=== PATIENT | female | born 1995 | race Caucasian/White ===

== ENCOUNTER 2022-01-07 08:00 | Outpatient (CLI) | payer MEDICAID ==
[2022-01-07 15:13] LABS: BILIRUBIN,URINE NEGATIVE (NEGATIVE); GLUCOSE, URINE (UA) NEGATIVE (NEGATIVE); KETONES,URINE (UA) NEGATIVE (NEGATIVE); LEUKOCYTE ESTERASE, URINE TRACE (NEGATIVE); NITRITE,URINE POSITIVE (NEGATIVE); OCCULT BLOOD,URINE NEGATIVE (NEGATIVE); PROTEIN,URINE NEGATIVE (NEGATIVE); UROBILINOGEN,URINE 0.2 (NORMAL) E.U./dL (NORMAL)
[2022-01-07 15:19] LABS: CLARITY,URINE HAZY (CLEAR)
[2022-01-07 15:24] LABS: BACTERIA,URINE Many /HPF (None Seen); RBC,URINE 0-5 /HPF (0-5); SQUAMOUS EPITHELIAL CELL,UR FEW Squamous (<= Few); WBC,URINE >25 /HPF (0-5)
== END 2022-01-07 23:59 | disposition home or self-care (01) ==
LOC: LAB.S 08:00
PROVIDERS: ATTEND Emergency Medicine
DX: N39.0 Urinary tract infection, site not specified (principal)
CPT/HCPCS: 81001; 87077; 87086; 87181

== ENCOUNTER 2022-07-26 18:03 | Emergency (ER) | payer MEDICAID ==
[2022-07-26 18:38] VITALS: BP 143/80
--- OUTSIDE RECORDS SUMMARY | 2022-07-26 18:46 | EXTERNAL MEDICAL SUMMARY RPT | Continuity of Care Document ---
:1995 Author Organization [facility] Address [address] [place] [address] Phone Allergies No information. Encounters No information. Functional Status No information. Immunizations No information. Medications No information. Problems No information. Procedures No information. Results/Labs test date author facility value unit interpret ation Result panel 1 (unknown) (no (unknown) (unknown) (no value) (units (unk nown) date) unknown) (unknown) (no (unknown) (unknown) 05/27/22 (units (unkno wn) date) unknown) (unknown) (no (unknown) (unknown) [address] [place] [address] (units (unknown) date) unknown) (unknown) (no (unknown) (unknown) 2021. (units (unkno wn) date) unknown) (unknown) (no (unknown) (unknown) 7 mm in 3rd (units (un known) date) trimester. unknown) (unknown) (no (unknown) (unknown) Abdominal (units (unkn own) date) circumference: unknown) 25.18 cm, 29 weeks and 3 days (unknown) (no (unknown) (unknown) Accession (units (unkn own) date) Number: unknown) [id number] (unknown) (no (unknown) (unknown) Age/Sex: 27 / F (units (unknown) date) Date of Service: unknown) (unknown) (no (unknown) (unknown) Amniotic fluid (units (unknown) date) index: 14.5 cm, unknown) normal range is 5-24 cm. (unknown) (no (unknown) (unknown) FLORINA Edwards (units ( unknown) date) [id number] unknown) (unknown) (no (unknown) (unknown) Anatomic survey: (units (unknown) date) unknown) (unknown) (no (unknown) (unknown) Approved by: (units (u nknown) date) Ry Mancia M.D. on unknown) 05/27/2022 at 14:33 (unknown) (no (unknown) (unknown) Biparietal (units (unk nown) date) diameter: 7.36 unknown) cm, 29 weeks and 4 days (unknown) (no (unknown) (unknown) Bladder: Normal (units (unknown) date) in size. unknown) (unknown) (no (unknown) (unknown) COMPARISON: (units (un known) date) None. unknown) (unknown) (no (unknown) (unknown) Clinically (units (unk nown) date) estimated unknown) gestational age: 28 weeks and 2 days (unknown) (no (unknown) (unknown) Composite (units (unkn own) date) gestational age unknown) from present scan: 29 weeks and 4 days (unknown) (no (unknown) (unknown) Cord: 3-vessel (units (unknown) date) cord has unknown) orthotopic insertion. (unknown) (no (unknown) (unknown) : 1995 (units (unknown) date) Acct:[id number] unknown) (unknown) (no (unknown) (unknown) Diaphragm: (units (unk nown) date) Diaphragm is unknown) intact. (unknown) (no (unknown) (unknown) Dictated by: (units (u nknown) date) Ry Mancia M.D. on unknown) 05/27/2022 at 14:25 (unknown) (no (unknown) (unknown) Endovaginal (units (un known) date) scanning: Not unknown) performed (unknown) (no (unknown) (unknown) Estimated date (units (unknown) date) of delivery (ANALIA) unknown) from first dating scan: August 08, 2022. (unknown) (no (unknown) (unknown) Estimated (units (unknown) date) weight and unknown) percentile: 1363 g which correlates with the 75th (unknown) (no (unknown) (unknown) Estimated (units (unknown) date) weight of unknown) approximately 1363 g which correlates with the 75th (unknown) (no (unknown) (unknown) Extremities: All (units (unknown) date) 4 extremities unknown) identified, but the lateral left leg was not (unknown) (no (unknown) (unknown) FINDINGS: (units (unkn own) date) unknown) (unknown) (no (unknown) (unknown) Face: Nose and (units (unknown) date) lips, facial unknown) profile are not well visualized. (unknown) (no (unknown) (unknown) Femur length: (units ( unknown) date) 5.43 cm, 28 weeks unknown) and 5 days (unknown) (no (unknown) (unknown) (units (unkno wn) date) biometrics: unknown) (unknown) (no (unknown) (unknown) heart (units (un known) date) rate: 139 beats unknown) per minute. (unknown) (no (unknown) (unknown) First dating (units (u nknown) date) scan (date and unknown) location): May 27, 2022. (unknown) (no (unknown) (unknown) Follow-up (units (unkn own) date) imaging unknown) recommended. (unknown) (no (unknown) (unknown) General: A (units (unk nown) date) single living unknown) intrauterine gestation is present. (unknown) (no (unknown) (unknown) Head (units (unkno wn) date) circumference: unknown) 27.70 cm, 30 weeks and 2 days (unknown) (no (unknown) (unknown) Heart: (units (unkno wn) date) 4-chambered heart unknown) is present, with normal ventricular outflow tracts. (unknown) (no (unknown) (unknown) IMPRESSION: (units (un known) date) Single living unknown) intrauterine gestation with estimated gestational (unknown) (no (unknown) (unknown) INDICATIONS: (units (u nknown) date) ANATOMY SCAN unknown) (unknown) (no (unknown) (unknown) [facility] (units (unknown) date) unknown) (unknown) (no (unknown) (unknown) Kidneys: No (units (un known) date) unknown) hydronephrosis. Normal is less than 5 mm in 2nd trimester, (unknown) (no (unknown) (unknown) LMP-based (units (unkn own) date) estimated date of unknown) delivery (ANALIA): August 17, 2022. (unknown) (no (unknown) (unknown) Last menstrual (units (unknown) date) period (LMP): unknown) November 10, 2021. (unknown) (no (unknown) (unknown) Limited (units (unkno wn) date) visualization of unknown) the facial profile, nose/lips, lumbosacral (unknown) (no (unknown) (unknown) Loc: [place] (units (unkno wn) date) unknown) (unknown) (no (unknown) (unknown) [id number] (units (unk nown) date) unknown) (unknown) (no (unknown) (unknown) Maternal (units (unkno wn) date) cervical canal: unknown) 4.5 cm long. Normal lower limit is 2.5 cm. (unknown) (no (unknown) (unknown) Neuro: (units (unkno wn) date) Ventricles are unknown) non-dilated at less than 10 mm. Cisterna magna is (unknown) (no (unknown) (unknown) Nuchal skin (units (un known) date) fold: Not unknown) assessed given gestational age greater than 14-21 weeks (unknown) (no (unknown) (unknown) OUTSIDE/PRIOR (units ( unknown) date) DATING DATA: unknown) (unknown) (no (unknown) (unknown) Ordering (units (o wn) date) Provider: unknown) Moses Andrea C.N.M. (unknown) (no (unknown) (unknown) PROCEDURE: US OB (units (unknown) date) >= 14 WEEKS FETUS unknown) (unknown) (no (unknown) (unknown) Patient: (units (unkno wn) date) Jeannie Pantoja unknown) E MR#: (unknown) (no (unknown) (unknown) Placenta: (units (unkn own) date) Placental unknown) position is anterior , without previa. (unknown) (no (unknown) (unknown) Presentation: (units ( unknown) date) Transverse. unknown) (unknown) (no (unknown) (unknown) Procedure: US OB (units (unknown) date) >= 14 weeks Fetus unknown) (unknown) (no (unknown) (unknown) Real-time (units (unkn own) date) scanning was unknown) performed of the fetus, with image documentation and (unknown) (no (unknown) (unknown) Signed (units (unkno wn) date) unknown) (unknown) (no (unknown) (unknown) Single deepest (units (unknown) date) vertical pocket unknown) is 5.3 cm. (unknown) (no (unknown) (unknown) Spine: Limited (units (unknown) date) evaluation of the unknown) lumbosacral spine. (unknown) (no (unknown) (unknown) Stomach: (units (unkno wn) date) Left-sided unknown) stomach is present. (unknown) (no (unknown) (unknown) TECHNIQUE: (units (unk nown) date) unknown) (unknown) (no (unknown) (unknown) The calculations (units (unknown) date) are made using unknown) the clinically derived ANALIA of August 17, (unknown) (no (unknown) (unknown) To assist (units (unkn own) date) unknown) (unknown) (no (unknown) (unknown) Ultrasound (units (unk nown) date) Report unknown) (unknown) (no (unknown) (unknown) We strive to (units (u nknown) date) produce accurate, unknown) complete, and clear reports of imaging services. (unknown) (no (unknown) (unknown) age of (units (unkno wn) date) unknown) (unknown) (no (unknown) (unknown) and voice (units (unkn own) date) recognition unknown) software. Therefore, it may contain abnormal punctuation, (unknown) (no (unknown) (unknown) approximately 28 (units (unknown) date) weeks and 2 days unknown) versus estimated sonographic gestational age (unknown) (no (unknown) (unknown) approximately 29 (units (unknown) date) weeks and 4 days unknown) by today's ultrasound. Dating remains (unknown) (no (unknown) (unknown) biometric (units (unkn own) date) unknown) (unknown) (no (unknown) (unknown) concordant. (units (un known) date) unknown) (unknown) (no (unknown) (unknown) for gestational (units (unknown) date) age unknown) (unknown) (no (unknown) (unknown) gestational age. (units (unknown) date) unknown) (unknown) (no (unknown) (unknown) inaccuracies. (units ( unknown) date) unknown) (unknown) (no (unknown) (unknown) insertions (units (unk nown) date) and/or omissions. unknown) Occasional wrong-word or sound-alike substitutions (unknown) (no (unknown) (unknown) lateral left (units (u nknown) date) lower extremity. unknown) Otherwise, unremarkable anatomic screening (unknown) (no (unknown) (unknown) less than (units (unkn own) date) unknown) (unknown) (no (unknown) (unknown) may (units (unkno wn) date) unknown) (unknown) (no (unknown) (unknown) measurements. (units ( unknown) date) unknown) (unknown) (no (unknown) (unknown) mm. Cerebellum (units (unknown) date) is normal in size unknown) and morphology. (unknown) (no (unknown) (unknown) normal at 3-11 (units (unknown) date) unknown) (unknown) (no (unknown) (unknown) occur. Though we (units (unknown) date) review the report unknown) and make efforts to correct it, we do (unknown) (no (unknown) (unknown) of (units (unkno wn) date) unknown) (unknown) (no (unknown) (unknown) percentile (units (unk nown) date) unknown) (unknown) (no (unknown) (unknown) percentile. (units (un known) date) unknown) (unknown) (no (unknown) (unknown) recommend that (units (unknown) date) unknown) (unknown) (no (unknown) (unknown) spine, and (units (unk nown) date) unknown) (unknown) (no (unknown) (unknown) survey. (units (unkno wn) date) unknown) (unknown) (no (unknown) (unknown) templates (units (unkn own) date) unknown) (unknown) (no (unknown) (unknown) the report be (units ( unknown) date) read carefully in unknown) proper context to recognize any text (unknown) (no (unknown) (unknown) us in improving (units (unknown) date) patient care, unknown) this report was composed using standard report (unknown) (no (unknown) (unknown) visualized. (units (un known) date) unknown) (unknown) (no (unknown) (unknown) well (units (unkno wn) date) unknown) Social History No information. Vital Signs No information.
--- NOTE | 2022-07-26 21:41 | ED Physician Documentation ---
History of Present Illness - Stated complaint Stated Complaint: FEMALE - Chief complaint Chief Complaint: General - Additonal information Additional information: 27-year-old female who is reportedly 38 weeks presents to the emergency department for a large thrombosed hemorrhoid which has made defecation painful for the last 4 days. She has previously had hemorrhoid surgery with our previous Dr. Mathis. She has been applying lidocaine without relief. She went to a local walk-in clinic but was told that the hemorrhoid was too large to come to the ER. She has no loss of fluids or vaginal bleeding. She continues to have movement. heart rates here in the emergency department greater than 160. Review of Systems Constitutional: reports: Reviewed and negative Throat: reports: Reviewed and negative Cardiac: reports: Reviewed and negative Respiratory: reports: Reviewed and negative : reports: Other (Thrombosed hemorrhoid) PD PAST MEDICAL HISTORY - Past Medical History Past Medical History: Yes Cardiovascular: None Respiratory: None Neuro: None Endocrine/Autoimmune: None GI: Hemorrhoids CLIENT REPORTING ASSOCIATE: None : None HEENT: None Psych: Claustrophobia Musculoskeletal: Chronic back pain Derm: None - Past Surgical History Past Surgical History: Yes - Present Medications Home Medications: Ambulatory Orders Medication Instructions Recorded Confirmed Ibuprofen 600 mg PO DAILY 11/04/14 11/14/14 Lactulose 30 ml PO DAILY 11/14/14 11/14/14 Oxycodone HCl/Acetaminophen 1 - 2 each PO Q6H PRN #15 tablet 11/14/14 [Percocet 5-325 mg Tablet] diazePAM [Valium] 5 mg PO Q6HR PRN 11/14/14 11/14/14 cephALEXin [Keflex] 250 mg PO Q6H #40 cap 04/25/22 - Allergies Allergies/Adverse Reactions: Allergies Allergy/AdvReac Type Severity Reaction Status Date / Time No Known Drug Allergies Allergy Verified 07/26/22 18:38 - Social History Does the pt smoke?: No Smoking Status: Never smoker Does the pt drink ETOH?: No Does the pt have substance abuse?: No - Immunizations Immunizations are current?: Yes - POLST Patient has POLST: No PD ED PE EXPANDED - General General: Alert, No acute distress - Abdomen Abdomen: Other (Gravid uterus well above the level of the umbilicus. heart rate 168. Normal movement.) - Rectal Rectal: Hemorrhoid (Large grapelike clusters of hemorrhoids around the rectum. A large 1 x 2 cm thrombosed hemorrhoid at 6:00 when on the left lateral recumbent position.) Results - Vitals Vitals: Vital Signs - 24 hr 07/26/22 07/26/22 07/26/22 18:34 20:45 21:25 Temperature 37.3 C Heart Rate 119 H 84 Respiratory 16 16 17 Rate Blood Pressure 143/80 H O2 Saturation 98 97 Oxygen O2 Source Room air Procedures - General procedure General procedure: Utilizing 1% lidocaine with epinephrine the thrombosed hemorrhoid was anesthetized after Betadine had been applied to the rectal area and allowed to dry. Once adequate anesthesia was achieved an elliptical incision was made and a large amount of clot was extracted from the hemorrhoid. The hemorrhoid decreased markedly in size. Procedure was well-tolerated by the patient. PD MEDICAL DECISION MAKING - ED course Complexity details: d/w patient, d/w family ED course: 27-year-old female who is nearly term in presents with a large thrombosed hemorrhoid on her left lateral rectal region. We did do a thrombectomy using 1% lidocaine with epinephrine. This was successful procedure with a large amount of clot removed. Patient is advised to start taking MiraLAX to help reduce the risk of constipation and improve pain with bowel movements. I am also making the recommendation that she begin a sitz bath once or twice daily to help with inflammation. She can continue to use the h emorrhoid and lidocaine creams. Continue to follow-up closely with OB. Here in the emergency department she had good movement as well is a heart rate registering at 168 Departure - Departure Disposition: 01 Home, Self Care Clinical Impression: Thrombosed external hemorrhoid Condition: Stable Record reviewed to determine appropriate education?: Yes Comments: I would like you to take a warm sitz bath once or twice daily. This Epson salt with magnesium can help reduce pain and inflammation. You can continue to apply the lidocaine cream that you previously were. I would like you to begin taking MiraLAX once or twice daily in order to help reduce constipation and prove pain with defecation. When she was delivered the baby is important that you follow closely with your primary care doctor. You may benefit from being seen by a surgeon again to discuss longer-term management of your hemorrhoids.
== END 2022-07-26 21:47 | disposition home or self-care (01) ==
LOC: ED 18:03
DX: O22.43 Hemorrhoids in pregnancy, third trimester (principal); K64.5 Perianal venous thrombosis; Z3A.38 38 weeks gestation of pregnancy
CPT/HCPCS: 46083; 99283

== ENCOUNTER 2024-05-16 21:15 | Outpatient (CLI) | payer MEDICAID ==
--- NOTE | 2024-05-17 13:45 | Ultrasound Report ---
PROCEDURE: OB 1st Trimester INDICATIONS: POSITIVE TEST OUTSIDE/PRIOR DATING DATA: Last menstrual period (LMP): Unknown. LMP-based estimated date of delivery (ANALIA): Not applicable. First dating scan (date and location): 05/16/2024. Estimated date of delivery (ANALIA) from first dating scan: 11/28/2024. TECHNIQUE: Real-time scanning was performed of the fetus and maternal pelvic organs, with image documentation. COMPARISON: None. FINDINGS: Intrauterine gestational sac present. Embryo: Present, measuring 5.4 cm, 12 weeks 0 days Heart rate: 150 bpm. Other: A couple of subchorionic hemorrhages measuring 2.0 x 0.9 x 2 cm and 1.9 x 0.9 x 1.5 cm. Measurement variability in dating: +/- 4 weeks by LMP, +/- 7 days by mean sac diameter (use before 6 weeks gestation if crown-rump length not able to be measured), +/- 5 days by crown-rump length (6-12 weeks gestation). Maternal organs: Ovaries appear within normal limits. IMPRESSION: Single living intrauterine at 12 weeks 0 days, ANALIA of 11/28/2024. A couple of small subchorionic hemorrhages. Reviewed by: Robbie Pruett MD on 05/17/2024 1:44 PM PDT Approved by: Robbie Pruett MD on 05/17/2024 1:44 PM PDT Station ID: [id number]
== END 2024-05-16 21:16 | disposition home or self-care (01) ==
LOC: DI 21:15
PROVIDERS: ATTEND Obstetrics & Gynecology
DX: O20.8 Other hemorrhage in early pregnancy (principal); Z3A.12 12 weeks gestation of pregnancy

== ENCOUNTER 2024-05-17 08:00 | Outpatient (CLI) | payer MEDICAID ==
[2024-05-17 12:56] LABS: BASOPHILS % (AUTO) 0.5 %; EOSINOPHILS # (AUTO) 0.1 10^3/uL (0.0-0.7); EOSINOPHILS % (AUTO) 0.9 %; HCT - HEMATOCRIT 36.4 % (37.0-47.0); HGB - HEMOGLOBIN 12.3 g/dL (12.0-16.0); LYMPHOCYTES # (AUTO) 1.4 10^3/uL (1.5-3.5); LYMPHOCYTES % (AUTO) 21.7 %; MEAN CORPUSCULAR HEMOGLOBIN 28.7 pg (27.0-31.0); MEAN CORPUSCULAR HGB CONC 33.8 g/dL (32.0-36.0); MEAN CORPUSCULAR VOLUME 84.8 fL (81.0-99.0); MEAN PLATELET VOLUME 11.4 fL (7.9-10.8); MONOCYTES # (AUTO) 0.3 10^3/uL (0.0-1.0); MONOCYTES % (AUTO) 4.2 %; NEUTROPHILS # (AUTO) 4.7 10^3/uL (1.5-6.6); NEUTROPHILS % (AUTO) 72.4 %; PLT - PLATELET COUNT 217 10^3/uL (130-450); RED BLOOD COUNT 4.29 10^6/uL (4.20-5.40); RED CELL DISTRIBUTION WIDTH 14.4 % (12.0-15.0); WHITE BLOOD COUNT 6.5 x10^3/uL (4.8-10.8)
[2024-05-17 21:20] LABS: CHLAMYDIA TRACHOMATIS DNA NEGATIVE (NEGATIVE); NEISSERIA GONORRHOEAE DNA NEGATIVE (NEGATIVE); TRICHOMONAS VAGINALIS DNA NEGATIVE (NEGATIVE)
[2024-05-18 03:11] LABS: HBsAG SCREEN Negative (Negative)
[2024-05-18 06:10] LABS: HIV SCREEN 4TH GENERATION Non Reactive (Non Reactive)
[2024-05-18 07:10] LABS: RPR Non Reactive (Non Reactive)
[2024-05-18 12:09] LABS: VARICELLA-ZOSTER AB IGG 2603 index (Immune >165)
[2024-05-19 05:09] LABS: HCV AB Non Reactive (Non Reactive)
== END 2024-05-17 23:59 | disposition home or self-care (01) ==
LOC: LAB.WC 08:00
PROVIDERS: ATTEND Nurse Practitioner
DX: Z34.80 Encounter for supervision of other normal pregnancy, unspecified trimester (principal); Z36.89 Encounter for other specified antenatal screening
CPT/HCPCS: 36415; 85025; 86592; 86762; 86787; 86803; 86850; 86900; 86901; 87340; 87389; 87491; 87591; 87661

== ENCOUNTER 2024-05-30 22:40 | Outpatient (CLI) | payer MEDICAID | END 2024-05-30 22:41 | disposition home or self-care (01) | LOC: LAB 22:40 | PROVIDERS: ATTEND Nurse Practitioner | DX: Z36.89 Encounter for other specified antenatal screening (principal) ==

== ENCOUNTER 2024-11-18 19:33 | Inpatient (IN) ==
[2024-11-18] MEDS ORDERED: hydrALAZINE INJ 20 MG/ML VIAL IVP PRN ×3 (19:41→22:18)
[2024-11-18] MEDS ORDERED: lidocaine 1% 20 ML MDV ID PRN (19:41)
[2024-11-18] MEDS ORDERED: miSOPROStoL 200 MCG TABLET BC PRN (19:41)
[2024-11-18] MEDS ORDERED: miSOPROStoL 200 MCG TABLET PR PRN (19:41)
[2024-11-18] MEDS ORDERED: TERBUTALINE 1 MG/ML VIAL SUBQ PRN (19:41)
[2024-11-18] MEDS ORDERED: METHYLERGONOVINE 0.2 MG/ML VIAL IM PRN (19:41)
[2024-11-18] MEDS ORDERED: LABETALOL 20 MG/4 ML SYRINGE IVP PRN ×5 (19:41→22:18)
[2024-11-18] MEDS ORDERED: OXYTOCIN 10 UNIT/ML VIAL IM PRN (19:41)
[2024-11-18] MEDS ORDERED: TRANEXAMIC ACID IN NACL 1,000 MG/100 ML BAG IV PRN (19:41)
[2024-11-18] MEDS ORDERED: SODIUM CHLORIDE FLUSH 0.9% 10 ML SYRINGE IVP PRN (19:41)
[2024-11-18] MEDS ORDERED: NIFEdipine 10 MG CAPSULE PO PRN ×2 (19:41→22:18)
[2024-11-18] MEDS ORDERED: fentaNYL 100 MCG/2 ML VIAL IVP PRN (19:41)
[2024-11-18 20:04] LABS: BASOPHILS # (AUTO) 0.1 10^3/uL (0.0-0.1); BASOPHILS % (AUTO) 0.4 %; EOSINOPHILS % (AUTO) 0.1 %; HCT - HEMATOCRIT 37.2 % (37.0-47.0); HGB - HEMOGLOBIN 11.9 g/dL (12.0-16.0); LYMPHOCYTES # (AUTO) 1.2 10^3/uL (1.5-3.5); LYMPHOCYTES % (AUTO) 8.6 %; MEAN CORPUSCULAR HEMOGLOBIN 24.7 pg (27.0-31.0); MEAN CORPUSCULAR VOLUME 77.2 fL (81.0-99.0); MEAN PLATELET VOLUME 10.7 fL (7.9-10.8); MONOCYTES # (AUTO) 0.7 10^3/uL (0.0-1.0); MONOCYTES % (AUTO) 4.6 %; NEUTROPHILS # (AUTO) 12.5 10^3/uL (1.5-6.6); PLT - PLATELET COUNT 314 10^3/uL (130-450); RED BLOOD COUNT 4.82 10^6/uL (4.20-5.40); RED CELL DISTRIBUTION WIDTH 14.8 % (12.0-15.0); WHITE BLOOD COUNT 14.5 x10^3/uL (4.8-10.8)
[2024-11-18] MEDS ORDERED: ROPIVACAINE 0.2% 200 MG/100 ML BAG EP ONE (20:11)
[2024-11-18 20:25] LABS: HIV RAPID SCREEN NEGATIVE (NEGATIVE)
[2024-11-18 20:31] LABS: ALBUMIN 3.8 g/dL (3.2-5.5); ALBUMIN/GLOBULIN RATIO 1.2 (1.0-2.2); BILIRUBIN,TOTAL 0.6 mg/dL (0.2-1.0); CALCIUM 8.8 mg/dL (8.5-10.3); CREATININE 0.5 mg/dL (0.6-1.3); POTASSIUM 3.2 mmol/L (3.5-4.5); TOTAL PROTEIN 6.9 g/dL (6.4-8.9)
[2024-11-18] MEDS ORDERED: LIDOCAINE-PF 2% 10 ML AMP SUBQ ONE (20:51)
[2024-11-18 20:57] LABS: ESTIMATED AVERAGE GLUCOSE 103 mg/dL (70-100); HEMOGLOBIN A1c% 5.2 % (4.27-6.07)
[2024-11-18] MEDS ORDERED: ePHEDrine 50 MG/ML VIAL IVP PRN (21:14)
[2024-11-18] MEDS ORDERED: NALBUPHINE 10 MG/ML AMP IVP PRN (21:14)
[2024-11-18] MEDS ORDERED: NALOXONE 0.4 MG/ML VIAL IVP PRN ×2 (21:14→22:18)
[2024-11-18] MEDS ORDERED: LACTATED RINGERS 500 ML IV ONE (21:14)
[2024-11-18] MEDS ORDERED: ROPIVACAINE 0.2% 200 MG/100 ML BAG EP PRN (21:14)
[2024-11-18] MEDS ORDERED: METOCLOPRAMIDE 10 MG/2 ML VIAL IVP PRN (21:14)
[2024-11-18] MEDS ORDERED: ONDANSETRON 4 MG/2 ML VIAL IVP PRN (21:14)
[2024-11-18] MEDS ORDERED: diphenhydrAMINE INJ 50 MG/ML VIAL IVP PRN (21:14)
--- NOTE | 2024-11-18 21:17 | ANESTHESIA PROCEDURE NOTE ---
Pre-Anesthesia VS, & Labs Diagnosis Surgical Diagnosis:: active labor Procedure Procedure: labor epidural NPO NPO: Other (clears from now until delivery) Is Patient ?: Yes Lab Results Current Lab Results: Laboratory Tests 11/18/24 19:57: WBC 14.5 H, RBC 4.82, Hgb 11.9 L, Hct 37.2, MCV 77.2 L, MCH 24.7 L, MCHC 32.0, RDW 14.8, Plt Count 314, MPV 10.7, Neut # (Auto) 12.5 H, Lymph # (Auto) 1.2 L, Anson # (Auto) 0.7, Eos # (Auto) 0.0, Baso # (Auto) 0.1, Absolute Nucleated RBC 0.00, Nucleated RBC % 0.0, Sodium 133 L, Potassium 3.2 L, Chloride 104, Carbon Dioxide 12 L*, Anion Gap 17.0 H, BUN 9, Creatinine 0.5 L, Estimated GFR (MDRD) 144, Glucose 101, Estimat Average Glucose 103 H, Hemoglobin A1c % 5.2, Calcium 8.8, Total Bilirubin 0.6, AST 14, ALT 11, Alkaline Phosphatase 1315 H, Total Protein 6.9, Albumin 3.8, Globulin 3.1, Albumin/Globulin Ratio 1.2, Blood Type O POSITIVE, Antibody Screen NEGATIVE 11/18/24 19:57 11/18/24 19:57 Meds/Allgy Home Medications Ambulatory Orders Medication Instructions Recorded Confirmed vitamins no.154-ferrous 1 tab PO .daily #90 tabs 09/30/24 11/15/24 fumarate 27 mg-folic acid 1 mg tablet Allergies Allergies Allergy/AdvReac Type Severity Reaction Status Date / Time No Known Drug Allergies Allergy Verified 07/26/22 18:38 PFSH Active Problems All Active Problems (Updated 11/18/24 @ 21:14 by Stella Wilson MD) Elevated serum alkaline phosphatase level (Acute) Low serum potassium (Acute) Normal labor (Acute) Marijuana use (Acute) History of inadequate care (Acute) Supervision of normal in third trimester (Acute) Medical History Medical History (Updated 11/18/24 @ 21:14 by Stella Wilson MD) Hemorrhoids, internal (11/24/14) Termination of (03/2023) 13 weeks Miscarriage (09/29/23) 6 weeks. Vaginal delivery 07/22/17 and 08/09/22 term vag del Surgical History Surgical History (Updated 10/15/24 @ 20:16 by Stella Wilson MD) H/O dilation and curettage H/O hemorrhoidectomy (2014) Family History Family History (Updated 07/03/24 @ 09:17 by Christine Lui MA) Maternal grandfather Oral cancer Maternal grandmother High blood pressure Breast cancer Social History Social History (Updated 10/15/24 @ 16:57 by Stella Wilson MD) Smoking Status: Never smoker Do you dip or chew tobacco?: No Living Condition: With family Relationship: Level: Independent History of Abuse: No Substance Use: cannabis (any form) Substance Use Details: daily Are you sexually active?: Yes POLST Patient has POLST: No Anesthesia Exam (Expanded) Exam General: Alert Dental: WNL Mouth Opening: Greater than 4 Fingerbreadths Mallampati classification: I Thyromental Distance: greater than 6 cm Respiratory: Lungs clear Cardiovascular: Regular rate Plan Plan Anesthesia Type: Epidural Consent for Procedure(s) Verified and Reviewed: Yes Code Status: Attempt Resuscitation ASA Classification ASA classification: 2-Mild systemic disease Is this case an emergency?: No
--- NOTE | 2024-11-18 21:23 | HISTORY & PHYSICAL EXAMINATION ---
Admit History Visit Reason Visit Reason: Contractions : 5 Parity: 2 : 2 Care: positive [facility] (but only 2 visits, after initial) Complications This : positive Maternal drug use (daily marijuana use) Smoking Status: Never smoker Mother's Labs GBS: positive Group B Step Negative Rubella Status: positive Non-immune Other Maternal History Other Maternal History: Expected Delivery Route/Plan vag delivery Specific Issues/Plans LMP: ANALIA by LMP: U/S: 05/16/2024 ANALIA by US Final ANALIA: 11/28/2024 Size less than dates: Ultrasound ordered. Encouraged to schedule. Pre- weight: unsure Blood type: O+ Antibody screen: Negative CBC: PLT 217 HCT 36.4 HGB 12.3 Rubella: [place] VZV: Immune HBsAg: Negative HepC: NR RPR/AB-EIA: NR HIV: NR Flu: COVID: PAP: GC/CT: 05/17/2025 Negative HSV: Denies Genetic Testing: FAS: 09/30/2024 Placenta: Anterior Cord: 3VC BONITA: 16.8cm EFW: 1790.3g 50gm GCT: Reminded 10/15 3 hr GTT: TDAP:09/30 Breast Pump:10/15 2nd antibody screen: 3rd trimester H/H PLT 3rd trimester RPR RSV: declined GBS: Collected 11/15 contraception OB Visit Log Initial Weight: Not Recorded Date EGA Weight BP Fundal ht Pres HR Movement CTX Edema Cerv Dil Cerv Eff % Sta 10/15/24 33w 5d 148 lb 114/60 31 v 130 active occa sional absent 11/15/24 38w 1d 148 lb 110/60 34 Cephalic 145 active occa sional absent Notes Visit Date: 11/15/24 Last Updated by: Mina Johnson MD Doing very well today. Baby very active. Occasional [place], but no regular contractions. Size less than dates, encouraged to call to schedule ultrasound. GBS collected today. Denies history of HSV. Visit Date: 10/15/24 Last Updated by: Stella Wilson MD here alone. some contractions, not regular or painful. still needs to do sugar test. kids are with her but in car. will go to walk in clinic. does not tolerate her vitamins very well. try different kinds. has not delivered here yet so tour encouraged. group b strep screen next visit. Social History Social History (Updated 10/15/24 @ 16:57 by Stella Wilson MD)Smoking Status: Never smoker Do you dip or chew tobacco?: No Living Condition: With family Relationship: Level: Independent History of Abuse: No Substance Use: cannabis (any form) Substance Use Details: daily Are you sexually active?: Yes Meds/Allgy Home Medications Ambulatory Orders Medication Instructions Recorded Confirmed vitamins no.154-ferrous 1 tab PO .daily #90 tabs 09/30/24 11/15/24 fumarate 27 mg-folic acid 1 mg tablet Allergies Allergies Allergy/AdvReac Type Severity Reaction Status Date / Time No Known Drug Allergies Allergy Verified 07/26/22 18:38 PFSH Active Problems All Active Problems (Updated 11/18/24 @ 21:14 by Stella Wilson MD) Elevated serum alkaline phosphatase level (Acute) Low serum potassium (Acute) Normal labor (Acute) Marijuana use (Acute) History of inadequate care (Acute) Supervision of normal in third trimester (Acute) Medical History Medical History (Updated 11/18/24 @ 21:14 by Stella Wilson MD) Hemorrhoids, internal (11/24/14) Termination of (03/2023) 13 weeks Miscarriage (09/29/23) 6 weeks. Vaginal delivery 07/22/17 and 08/09/22 term vag del Surgical History Surgical History (Updated 10/15/24 @ 20:16 by Stella Wilson MD) H/O dilation and curettage H/O hemorrhoidectomy (2014) Family History Family History (Updated 07/03/24 @ 09:17 by Christine Lui MA) Maternal grandfather Oral cancer Maternal grandmother High blood pressure Breast cancer Social History Social History (Updated 10/15/24 @ 16:57 by Stella Wilson MD) Smoking Status: Never smoker Do you dip or chew tobacco?: No Living Condition: With family Relationship: Level: Independent History of Abuse: No Substance Use: cannabis (any form) Substance Use Details: daily Are you sexually active?: Yes POLST Patient has POLST: No Review of Systems contractions started at about 1730 today. no headache. baby moving well. no n/v. minimal swelling Physical Abdominal Exam Vital Signs: per RN Contraction Frequency (min/apart): q2-3 Contraction Intensity: positive Moderate to strong Uterine Resting Tone: positive Soft Monitoring Heart Rate Baseline: 135 Strip Review: positive Category I Presentation Presentation: positive Vertex Vaginal Exam Membranes: positive Membranes intact Dilation (in cm): 9 Station: positive 0 Speculum Exam Speculum Exam Performed: positive No Plan for Labor Plan For Labor I expect patient to be DC'd or transferred within 96 hours.: Yes Conclusion/Plan Problem List (1) Normal labor: Plan: has epidural now. comfortable. anticipate shortly (2) Elevated serum alkaline phosphatase level: Plan: I have never seen a level so high. possible etiologies liver dysfunction but no other liver labs are high. check GGT. low vit D. abnormal thyroid. lung cancer with bone mets but no symptoms of this. will recheck tomorrow also (3) Low serum potassium: Plan: sandie replace after delivery (4) History of inadequate care: Plan: will do drug screen. and recheck hiv, RPR. never did her sugar check, A1c is normal. baby was small on last visit, did not do US. US done at 12 weeks for dating, 32 weeks for anatomy, but did not clear all anatomy. Did have NIPT that was normal. Lab Results Lab results reviewed: Yes 11/18/24 19:57 11/18/24 19:57
[2024-11-18 21:54] LABS: THYROID STIMULATING HORMONE 2.09 uIU/mL (0.34-5.60)
[2024-11-18 21:58] LABS: FERRITIN 10.4 ng/mL (11.0-306.8)
[2024-11-18] MEDS: OXYTOCIN/SODIUM CHLORIDE 500 ML IV PRN (22:08)
[2024-11-18 22:10] LABS: AMPHETAMINE SCREEN,URINE NEGATIVE (NEGATIVE); BARBITURATE SCREEN,UR NEGATIVE (NEGATIVE); BENZODIAZEPINES SCREEN, URINE NEGATIVE (NEGATIVE); BUPRENORPHINE SCREEN, URINE NEGATIVE (NEGATIVE); COCAINE SCREEN URINE NEGATIVE (NEGATIVE); METHADONE SCREEN, URINE NEGATIVE (NEGATIVE); METHAMPHETAMINES SCREEN, URINE NEGATIVE (NEGATIVE); OPIATE SCREEN, URINE NEGATIVE (NEGATIVE); OXYCODONE SCREEN, URINE NEGATIVE (NEGATIVE); THC CANNABINOID SCREEN, URINE POSITIVE (NEGATIVE); TRICYCLIC ANTIDEPRESSANT,URINE NEGATIVE (NEGATIVE)
[2024-11-18] MEDS ORDERED: OXYTOCIN/SODIUM CHLORIDE 500 ML IV PRN (22:18)
[2024-11-18] MEDS ORDERED: LABETALOL 5 MG/1 ML 20 ML MDV IVP PRN (22:18)
[2024-11-18] MEDS ORDERED: diphenhydrAMINE 25 MG CAPSULE PO PRN (22:18)
[2024-11-18] MEDS ORDERED: SIMETHICONE CHEW 80 MG TABLET PO PRN (22:18)
[2024-11-18] MEDS ORDERED: LIDOCAINE OINTMENT 5% 35.44 GM TUBE TOP PRN (22:24)
--- NOTE | 2024-11-18 22:32 | DELIVERY NOTE ---
Delivery Note Labor Labor: positive Spontaneous Infant Delivery Method Infant Delivery Method: positive Spontaneous vaginal delivery Presentation Presentation: positive Vertex and OA - occiput anterior Nuchal Cord Nuchal Cord: positive Present and Reduced Amniotic Fluid Description Amniotic Fluid Description: positive Clear and Other (terminal meconium) Episiotomy Type Episiotomy Type: positive None Laceration Laceration: positive None Delivery Outcome Delivery Date: 11/18/24 Delivery Outcome: positive Livebirth [place]: positive Placed in direct skin contact with mother, Bulb syringe and Stimulated sex: positive Female Cord Cord: positive 3 vessels Placenta Placenta: positive Intact and Clot Estimated Blood Loss Estimated Blood Loss (in cc): 100 Post Delivery Events Post Delivery Events: positive No post delivery events Delivery Comments (Free Text/Narrative) Delivery Comments (Free Text/Narrative): presented in very active labor, very uncomfortable. once admitted, epidural placed with great relief. 9 cm and let her rest a bit. vomiting and SROM. readied for delivery. pushed for 5 minutes and baby delivered OA. nuchal cord x 1. reduced. baby placed on mom's abdomen. did well. Apgars 8/9. cord clamped at cut about 2 minutes. pitocin infused in iv. placenta delivered spontaneously. clot over about 20%. uterus contracted well. minimal bleeding. terrible hemorrhoids. Mom and baby resting well.
[2024-11-18] MEDS: HYDROCORTISONE 25 MG SUPPOSITORY PR PRN (22:55)
[2024-11-18] MEDS: ACETAMINOPHEN 500 MG TABLET PO PRN (23:14)
[2024-11-18] MEDS: IBUPROFEN 600 MG TABLET PO PRN (23:16)
[2024-11-18] MEDS: DOCUSATE SODIUM 100 MG CAPSULE PO SCH (23:16)
[2024-11-19] MEDS: POTASSIUM CHLOR 10 MEQ/100 ML 10 MEQ/100 ML BAG IV SCH ×2 (01:40→02:47)
[2024-11-19] MEDS: SODIUM CHLORIDE FLUSH 0.9% 10 ML SYRINGE IVP SCH (01:40)
[2024-11-19] MEDS: LACTATED RINGERS 1,000 ML IV PRN (01:45)
[2024-11-19] MEDS: IRON DEXTRAN 200 MG in SODIUM CHLORIDE 0.9% 100ML 100 ML IV ONE (09:28)
[2024-11-19 09:56] LABS: HCT - HEMATOCRIT 32.7 % (37.0-47.0); HGB - HEMOGLOBIN 10.5 g/dL (12.0-16.0); MEAN CORPUSCULAR HEMOGLOBIN 25.2 pg (27.0-31.0); MEAN CORPUSCULAR HGB CONC 32.1 g/dL (32.0-36.0); MEAN CORPUSCULAR VOLUME 78.4 fL (81.0-99.0); MEAN PLATELET VOLUME 10.4 fL (7.9-10.8); RED BLOOD COUNT 4.17 10^6/uL (4.20-5.40); RED CELL DISTRIBUTION WIDTH 14.9 % (12.0-15.0); WHITE BLOOD COUNT 12.5 x10^3/uL (4.8-10.8)
[2024-11-19 10:02] VITALS: O2SAT 99
[2024-11-19 10:09] LABS: ALBUMIN 3.2 g/dL (3.2-5.5); ALBUMIN/GLOBULIN RATIO 1.2 (1.0-2.2); BILIRUBIN,TOTAL 0.5 mg/dL (0.2-1.0); CALCIUM 8.4 mg/dL (8.5-10.3); CREATININE 0.5 mg/dL (0.6-1.3); POTASSIUM 3.7 mmol/L (3.5-4.5); TOTAL PROTEIN 5.8 g/dL (6.4-8.9)
--- NOTE | 2024-11-19 11:55 | PHARMACY PROGRESS NOTE ---
Best Possible Medication History Admit Date and Time: 11/18/241941 Home Medications Medication Instructions Recorded Confirmed Type No Known Home Medications 11/19/24 11/19/24 History Processed by: Pharmacy (Medication Reconciliation completed by Medical Billing AssistantKenya) Medications reviewed in ED?: No Medication History completed: Yes Patient Interview: Completed Secondary Source(s): Insurance records [facility] Statement: As the person ultimately responsible for medication therapy, providers are able to order a medication from an existing home medication list in [facility] via the "Reconcile Routine" prior to Confirmation of that medication by customer support manager. Such practice is discouraged except when the physician, in their clinical judgment, deems that a medical need exists for a medication without regard to previous use.
--- NOTE | 2024-11-19 12:54 | PROVIDER PROGRESS NOTE ---
Subjective Prog Note Date Prog Note Date: 11/19/24 Prog Note Time: 12:49 Subjective Subjective: Jeannie reports that she is overall feeling well. Baby is at bedside. She is . She has been up and ambulating to the bathroom. Urinating without difficulty. Denies any unusual dark urine or light stools. She is tolerating regular diet. Denies unusual bone/joint pain. Reports lochia seems normal. Current Medications Current Medications Current Medications: Current Medications Generic Name Dose Route Start Last Admin Trade Name Freq PRN Reason Stop Dose Admin Acetaminophen 1,000 mg 11/18/24 19:41 11/19/24 08:53 Acetaminophen 500 Mg Tablet PO 1,000 mg Q8H PRN Administration Mild Pain or Fever>38C(100.4F) Acetaminophen 1,000 mg 11/18/24 22:18 Acetaminophen 500 Mg Tablet PO Q8HR PRN Mild Pain or Fever>38C(100.4F) Diphenhydramine HCl 12.5 - 25 mg 11/18/24 21:14 Diphenhydramine Inj 50 Mg/Ml Vial IVP Q6HR PRN ITCHING Diphenhydramine HCl 25 mg 11/18/24 22:18 Diphenhydramine 25 Mg Capsule PO QPM PRN Insomnia Docusate Sodium 100 mg 11/18/24 23:00 11/19/24 08:54 Docusate Sodium 100 Mg Capsule PO 100 mg BID EDWARDO Administration Ephedrine Sulfate 5 mg 11/18/24 21:14 Ephedrine 50 Mg/Ml Vial IVP Q5M PRN For SBP<100;give until SBP>100 Fentanyl 50 mcg 11/18/24 19:41 Fentanyl 100 Mcg/2 Ml Vial IVP Q1H PRN Severe Pain (score 7-10) Hydralazine HCl 5 - 10 mg 11/18/24 19:41 Hydralazine Inj 20 Mg/Ml Vial IVP Q20M PRN SBP> or= 160 OR DBP> or= 110 Protocol Hydralazine HCl 10 mg 11/18/24 22:18 Hydralazine Inj 20 Mg/Ml Vial IVP .ONCE PRN SBP> or= 160 OR DBP> or= 110 Protocol Hydralazine HCl 5 - 10 mg 11/18/24 22:18 Hydralazine Inj 20 Mg/Ml Vial IVP Q20M PRN SBP >=160 and/or DBP >=110 Protocol Hydrocortisone 25 mg 11/18/24 22:18 11/19/24 09:00 Hydrocortisone 25 Mg Suppository SD 25 mg BID PRN Administration Hemorrhoids Lactated Ringer's 500 mls @ 999 mls/hr 11/18/24 19:41 11/19/24 01:45 Lr IV 30 mls/hr PRN PRN Administration Blood Pressure Oxytocin/Sodium Chloride 500 mls @ 999 mls/hr 11/18/24 19:41 11/19/24 02:46 Pitocin/Sodium Chloride IV Infused PRN PRN Titration POST- HEMORR PREVENTION Protocol 999 MILLIUNIT/MIN Tranexamic Acid 1,000 mg in 100 mls @ 600 mls/hr 11/18/24 19:41 Tranexamic 1,000 Mg/100ml-Nacl IV Q30M PRN EBL >1200mL and within 3hr Ropivacaine 200 mg in 100 mls @ 0 mls/hr 11/18/24 21:14 Naropin 0.2% EP PRN PRN PAIN Protocol Per Protocol Oxytocin/Sodium Chloride 500 mls @ 999 mls/hr 11/18/24 22:18 Pitocin/Sodium Chloride IV PRN PRN POST- HEMORR PREVENTION Protocol 999 MILLIUNIT/MIN Ibuprofen 600 mg 11/18/24 22:18 11/19/24 08:54 Ibuprofen 600 Mg Tablet PO 600 mg Q6HR PRN Administration Moderate Pain (Level 4-6) Labetalol HCl 20 - 80 mg 11/18/24 19:41 Labetalol 20 Mg/4 Ml Syringe IVP Q10M PRN SBP> or= 160 OR DBP> or= 110 Protocol Labetalol HCl 20 mg 11/18/24 19:41 Labetalol 20 Mg/4 Ml Syringe IVP .ONCE PRN SBP> or= 160 OR DBP> or= 110 Protocol Labetalol HCl 20 - 40 mg 11/18/24 19:41 Labetalol 20 Mg/4 Ml Syringe IVP Q10M PRN SBP> or= 160 OR DBP> or= 110 Protocol Labetalol HCl 20 - 80 mg 11/18/24 22:18 Labetalol 5 Mg/1 Ml 20 Ml Mdv IVP Q10M PRN SBP> or= 160 OR DBP> or= 110 Protocol Labetalol HCl 20 - 40 mg 11/18/24 22:18 Labetalol 20 Mg/4 Ml Syringe IVP Q10M PRN SBP> or= 160 OR DBP> or= 110 Protocol Labetalol HCl 20 mg 11/18/24 22:18 Labetalol 20 Mg/4 Ml Syringe IVP .ONCE PRN SBP >=160 and/or DBP >=110 Protocol Lidocaine 1 applic 11/18/24 22:24 Lidocaine Ointment 5% 35.44 Gm Tube TOP Q6HR PRN Hemorrhoids Lidocaine HCl 20 ml 11/18/24 19:41 Lidocaine 1% 20 Ml Mdv ID 11/21/24 19:42 .ONCE PRN PERINEAL REPAIR Methylergonovine Maleate 0.2 mg 11/18/24 19:41 Methylergonovine 0.2 Mg/Ml Vial IM .ONCE PRN Hemorrhage Metoclopramide HCl 10 mg 11/18/24 21:14 Metoclopramide 10 Mg/2 Ml Vial IVP Q6HR PRN Nausea / Vomiting Misoprostol 600 mcg 11/18/24 19:41 Misoprostol 200 Mcg Tablet BC .ONCE PRN Hemorrhage Misoprostol 800 mcg 11/18/24 19:41 Misoprostol 200 Mcg Tablet SD .ONCE PRN Hemorrhage Nalbuphine HCl 2.5 - 5 mg 11/18/24 21:14 Nalbuphine 10 Mg/Ml Amp IVP Q4H PRN ITCHING Naloxone HCl 0.1 mg 11/18/24 21:14 Naloxone 0.4 Mg/Ml Vial IVP Q2M PRN RR<8 Naloxone HCl 0.4 mg 11/18/24 22:18 Naloxone 0.4 Mg/Ml Vial IVP .ONCE PRN Opioid Overdose Nifedipine 10 - 20 mg 11/18/24 19:41 Nifedipine 10 Mg Capsule PO Q20M PRN SBP> or= 160 OR DBP> or= 110 Protocol Nifedipine 10 - 20 mg 11/18/24 22:18 Nifedipine 10 Mg Capsule PO Q20M PRN SBP >=160 and/or DBP >=110 Protocol Ondansetron HCl 4 mg 11/18/24 21:14 Ondansetron 4 Mg/2 Ml Vial IVP Q6HR PRN Nausea / Vomiting Oxytocin 10 unit 11/18/24 19:41 Oxytocin 10 Unit/Ml Vial IM .ONCE PRN Step One if no IV access. Simethicone 80 mg 11/18/24 22:18 Simethicone Chew 80 Mg Tablet PO TID PRN Gas Sodium Chloride 10 ml 11/18/24 19:41 Sodium Chloride Flush 0.9% 10 Ml Syringe IVP PRN PRN NEEDED PER PROVIDER ORDERS Sodium Chloride 10 ml 11/18/24 20:00 11/19/24 01:40 Sodium Chloride Flush 0.9% 10 Ml Syringe IVP 10 ml Q8H EDWARDO Administration Terbutaline Sulfate 0.25 mg 11/18/24 19:41 Terbutaline 1 Mg/Ml Vial SUBQ .ONCE PRN Tachystole Objective Vital Signs/Intake & Output Reviewed Vital Signs: Yes Vital Signs: Vital Signs x48h Temp Pulse Resp BP Pulse Ox 11/19/24 09:58 98.6 F 61 16 135/71 H 99 Intake & Output: Intake & Output 11/16/24 11/17/24 11/18/24 11/19/24 23:59 23:59 23:59 23:59 Intake Total 1400 / 1400 Output Total 500 / 500 400 / 400 Balance -500 / -500 1000 / 1000 Weight (kg) 147 lb Objective Comments/Other: Gen: NAD Eyes: no scleral icterus Chest: non labored respirations Abd: non-tender, fundus firm below umilicus Ext: no LE edema, no evidence of DVT Lab Results 11/19/24 09:45 11/19/24 09:45 Other Labs: Lab Results x24hrs 11/19/24 11/18/24 11/18/24 Range/Units 09:45 21:45 19:57 WBC 12.5 H 14.5 H (4.8-10.8) x10^3/uL RBC 4.17 L 4.82 (4.20-5.40) 10^6/uL Hgb 10.5 L 11.9 L (12.0-16.0) g/dL Hct 32.7 L 37.2 (37.0-47.0) % MCV 78.4 L 77.2 L (81.0-99.0) fL MCH 25.2 L 24.7 L (27.0-31.0) pg MCHC 32.1 32.0 (32.0-36.0) g/dL RDW 14.9 14.8 (12.0-15.0) % Plt Count 290 314 (130-450) 10^3/uL MPV 10.4 10.7 (7.9-10.8) fL Neut # (Auto) 12.5 H (1.5-6.6) 10^3/uL Lymph # (Auto) 1.2 L (1.5-3.5) 10^3/uL Douglas # (Auto) 0.7 (0.0-1.0) 10^3/uL Eos # (Auto) 0.0 (0.0-0.7) 10^3/uL Baso # (Auto) 0.1 (0.0-0.1) 10^3/uL Absolute Nucleated RBC 0.00 x10^3/uL Nucleated RBC % 0.0 /100WBC Sodium 135 133 L (135-145) mmol/L Potassium 3.7 3.2 L (3.5-4.5) mmol/L Chloride 107 104 (101-111) mmol/L Carbon Dioxide 21 12 L* (21-32) mmol/L Anion Gap 7.0 17.0 H (6-13) BUN 7 9 (6-20) mg/dL Creatinine 0.5 L 0.5 L (0.6-1.3) mg/dL Estimated GFR (MDRD) 144 144 (>89) Glucose 92 101 (74-104) mg/dL Estimat Average Glucose 103 H (70-100) mg/dL Hemoglobin A1c % 5.2 (4.27-6.07) % Calcium 8.4 L 8.8 (8.5-10.3) mg/dL Ferritin 10.4 L (11.0-306.8) ng/mL Total Bilirubin 0.5 0.6 (0.2-1.0) mg/dL GGT 6 L (9-64) IU/L AST 14 14 (10-42) IU/L ALT 11 11 (10-60) IU/L Alkaline Phosphatase 967 H 1315 H (42-121) IU/L Total Protein 5.8 L 6.9 (6.4-8.9) g/dL Albumin 3.2 3.8 (3.2-5.5) g/dL Globulin 2.6 3.1 (2.1-4.2) g/dL Albumin/Globulin Ratio 1.2 1.2 (1.0-2.2) TSH 2.09 (0.34-5.60) uIU/mL Urine Opiates Screen NEGATIVE (NEGATIVE) Ur Buprenorphine Scrn NEGATIVE (NEGATIVE) Ur Oxycodone Screen NEGATIVE (NEGATIVE) Urine Methadone Screen NEGATIVE (NEGATIVE) Ur Barbiturates Screen NEGATIVE (NEGATIVE) Ur Tricyclics Screen NEGATIVE (NEGATIVE) Ur Phencyclidine Scrn NEGATIVE (NEGATIVE) Ur Amphetamine Screen NEGATIVE (NEGATIVE) U Methamphetamines Scrn NEGATIVE (NEGATIVE) U Benzodiazepines Scrn NEGATIVE (NEGATIVE) Urine Cocaine Screen NEGATIVE (NEGATIVE) U Cannabinoids Screen POSITIVE H (NEGATIVE) Ur Drug Screen Comment CUTOFF CONC BELOW: HIV 1&2 Antibody Rapid NEGATIVE (NEGATIVE) Blood Type O POSITIVE Antibody Screen NEGATIVE Assessment/Plan Problem List (1) care and examination of lactating mother: Impression: - Continue routine care. - Possible discharge home tomorrow (2) Elevated serum alkaline phosphatase level: Impression: - Alk phos level has trended down this morning, will repeat in the AM. Consider isoenzymes to determine source if still remains extremely elevated/not trending down. (3) History of inadequate care: Impression: - Seen by social media sr strategy manager today. (4) Iron deficiency anemia: Impression: - s/p iron infusion
[2024-11-19] MEDS: ACETAMINOPHEN 500 MG TABLET PO PRN (16:05)
[2024-11-20 04:08] LABS: RPR Non Reactive (Non Reactive)
[2024-11-20 09:19] LABS: ALBUMIN 3.1 g/dL (3.2-5.5); ALBUMIN/GLOBULIN RATIO 1.2 (1.0-2.2); BILIRUBIN,TOTAL 0.2 mg/dL (0.2-1.0); CALCIUM 8.1 mg/dL (8.5-10.3); CREATININE 0.4 mg/dL (0.6-1.3); POTASSIUM 3.7 mmol/L (3.5-4.5); TOTAL PROTEIN 5.6 g/dL (6.4-8.9)
[2024-11-20 10:31] VITALS: BP 124/68; TEMP 99
--- NOTE | 2024-11-20 11:32 | Discharge Summary ---
Discharge Summary Admit Date: 11/18/24 Discharge Date: 11/20/24 Discharging Provider: Mina Johnson Code Status: Attempt Resuscitation DIAGNOSES Admission Diagnoses: Term labor Discharge Diagnoses with Status of Each Condition: Status post spontaneous vaginal delivery Delivery of live champagne Elevated alkaline phosphatase: Improving, will repeat HPI History of Present Illness: Subjective Patient reports she is doing well. Lochia appropriate. Denies heavy bleeding. Ambulating. Pelvic and abdominal pain well-controlled. Tolerating oral intake. Diet: Regular. Voiding without difficulty. Passing flatus. Denies BM. Patient is bonding with baby in room Breast feeding going well. Denies feeling lightheaded, dizzy or excessively fatigued. Objective General: Alert, oriented, no apparent distress. Cardiovascular: Regular rate. Regular rhythm. Lungs: No increased work of breathing. Abdomen: Uterus firm. Below umbilicus. No guarding or rebound. Extremities: No pain on palpation. No cords palpated. Distal pulses intact. HOSPITAL COURSE Hospital Course: Patient was admitted for labor at 38 weeks gestation for labor. She had an unremarkable spontaneous vaginal delivery with a reduced nuchal cord. Apgars of 8/9. Normal course. Had an significantly elevated alkaline phosphatase on admission of 1315, trending down to 934 . Will plan on rechecking outpatient. No symptoms of bone disease, lung disease, gallbladder disease. She did have some right upper quadrant pain previously, but nothing currently. Discussed warning signs for worsening disease. Discussed care and depression. Discharged with on day 2. ALLERGIES Allergies Allergy/AdvReac Type Severity Reaction Status Date / Time No Known Drug Allergies Allergy Verified 07/26/22 18:38 MEDICATIONS Ambulatory Orders Medication Instructions Recorded Confirmed docusate sodium 100 mg capsule 100 - 200 mg (1 - 2 x 100 mg) PO 11/20/24 BID PRN Constipation #60 caps hydrocortisone acetate 25 mg 25 mg MS DAILY PRN hemorrhoids 2 11/20/24 rectal suppository weeks #12 ea LABS 11/19/24 09:45 11/20/24 08:46 FOLLOW UP Follow Up: With [facility] women's care in 1 to 2 weeks TIME SPENT Time Spent in Discharge (Minutes): 20 Discharge Plan Discharge Patient Disposition: Home, Self Care Medically Cleared Date:: 11/20/24 Prescriptions: New docusate sodium 100 mg capsule 100 - 200 mg PO BID PRN (Reason: Constipation) Qty: 60 1RF hydrocortisone acetate 25 mg suppository 25 mg MS DAILY PRN (Reason: hemorrhoids) 14 Days Qty: 12 0RF Diet: Regular Print Language: Vietnamese Patient Instructions: Vaginal After, Depression
--- NOTE | 2024-11-20 15:05 | Labor Flowsheet ---
Labor Flowsheet Datetime Report Generated by CPN: 11/20/2024 15:04 Datetime: 11/20/2024 10:21 VITAL SIGNS NBP Sys/Kathi/Mean (mmHg): 124 : 68 : 80 Pulse: 64 Datetime: 11/18/2024 23:00 Respirations: 16 PAIN Pain Scale: 0 Datetime: 11/18/2024 22:12 Membranes Ruptured Date/Time: 11/18/2024 21:58 Membranes Rupture Method: Spontaneous Amniotic Fluid Color: Clear Amniotic Fluid Amount: Large Amniotic Fluid Odor: None Datetime: 11/18/2024 22:10 Stage of : Datetime: 11/18/2024 22:09 SpO2 (%): 100 Datetime: 11/18/2024 22:04 STAGE 2 Stage 2 Comments: 2205 delivery Datetime: 11/18/2024 22:01 COMMUNICATION Communication: Provider at Bedside Communication Comments: set uip for delivery Datetime: 11/18/2024 21:51 Anesthesia Level Check: T9 Datetime: 11/18/2024 21:50 FHR Baseline Rate : 145 FHR Baseline Changes: No Baseline Change Variability: Moderate 6-25 bpm Accelerations: 15X15 Decelerations: None Datetime: 11/18/2024 21:41 UTERINE ACTIVITY Monitor Mode: External Frequency (min): 2 Quality: Strong Duration (sec): 60+ Pattern: Normal: <= 5 Contractions in 10 Minutes Resting Tone (Palpate): Relaxed Category: Category I VAGINAL EXAM Dilatation (cm): 10.0 Effacement (%): 100 Station: -2 Exam by: Mkjason Vaginal Bleeding: None Cervix, Consistency: Soft Cervix, Position: Midposition I/O Interventions: Straight Cath (ml) @ 150 Datetime: 11/18/2024 21:36 Patient Position/Activity: High Fowlers Datetime: 11/18/2024 21:27 Temperature (C): 36.9 Datetime: 11/18/2024 21:26 Pain Presence: None/Denies Datetime: 11/18/2024 21:21 Monitor Interventions for UA: [place] Adjusted Monitor Interventions for FHR: Ultrasound Adjusted Datetime: 11/18/2024 21:09 LaborFlag: Labor Datetime: 11/18/2024 20:56 Notification Reason: Status Update Datetime: 11/18/2024 20:29 Epidural Procedure: Test Dose Datetime: 11/18/2024 20:20 PROCEDURE TIME OUT Procedure Verify: Correct Patient Position Datetime: 11/18/2024 20:15 ANESTHESIA Anesthesia Plans: Epidural Datetime: 11/18/2024 20:05 Pitocin Checklist: At Least 1 Acceleration of 15 bpm x 15 Seconds in 30 Minutes or Adequate Variabi lity ASSESSMENT A Monitor Mode: External US Pain Type: Cramping Vaginal Exam Comments: unchanged Datetime: 11/18/2024 19:50 PATIENT CARE IV/Blood Work: IV Started; IV Bolus Started Datetime: 11/18/2024 19:49 Pain Assessment Comments: pt requests nitrous Datetime: 11/18/2024 19:46 Provider Notified (Name): Dr. Wilson
== END 2024-11-20 14:55 | disposition home or self-care (01) | DRG 806 ==
LOC: WFO 19:33 → FBP 19:36
PROVIDERS: ADMIT Obstetrics & Gynecology; ATTEND Obstetrics & Gynecology
DX: E55.9 Vitamin D deficiency, unspecified; O99.284 Endocrine, nutritional and metabolic diseases complicating childbirth; E87.6 Hypokalemia; O22.43 Hemorrhoids in pregnancy, third trimester; D50.9 Iron deficiency anemia, unspecified; R74.8 Abnormal levels of other serum enzymes; Z37.0 Single live birth; O99.02 Anemia complicating childbirth; O69.81X0 Labor and delivery complicated by cord around neck, without compression, not applicable or unspecified; Z3A.38 38 weeks gestation of pregnancy; O75.89 Other specified complications of labor and delivery